=== PATIENT | male | born 1970 | race Caucasian/White ===

== ENCOUNTER → 2019-09-08 | Outpatient (CLI) | payer OTHER ==
--- NOTE | 2019-09-08 13:43 | Diagnostic Imaging Report ---
Exam: Testicular ultrasound. Clinical History: Chronic testicular pain Findings: Sonographic evaluation of the testicles. Both testes are normal in echogenicity and size without intratesticular mass. Normal symmetric blood flow without evidence of testicular torsion. Right: The right testicle measures 4.5 x 2.0 x 2.9 cm and appears unremarkable. The right epididymis measures 1.2 0.7 x 0.7 cm and contains a 3 mm spermatocele. Trace right hydrocele. No varicocele. Left: The left testicle measures 4.3 x 2.1 x 3.0 cm and appears unremarkable. The left epididymis measures 1.1 x 0.9 x 1.1 cm and contains a 4 mm spermatocele. Trace left hydrocele. No varicocele. Impression: No testicular torsion. Small bilateral spermatoceles. Trace bilateral hydrocele. Signed by: Farideh Matta MD on 09/08/2019 1:40 PM
== END ==
LOC: US 12:14
PROVIDERS: ATTEND Urology
DX: N50.812 Left testicular pain (principal); N50.811 Right testicular pain; G89.29 Other chronic pain; N43.3 Hydrocele, unspecified; N43.40 Spermatocele of epididymis, unspecified
CPT/HCPCS: 76870; 93976